=== PATIENT | female | born 1980 | race Caucasian/White ===

== ENCOUNTER → 2019-04-27 | Outpatient (CLI) | payer OTHER ==
[~2019-04-27] MED LIST: HYDACE5 PO
[2019-04-27 20:30] LABS: Protein, Urine Random 17.4 mg/dL (0.0-11.9); Protein/Creat Ratio, Ur Random 0.2
== END | disposition home or self-care (01) ==
LOC: LAB 19:12 → LAB SHORT 19:12
PROVIDERS: Obstetrics & Gynecology
DX: O09.523 Supervision of elderly multigravida, third trimester (principal); Z3A.31 31 weeks gestation of pregnancy
CPT/HCPCS: 82570; 84156

== ENCOUNTER → 2019-05-08 | Outpatient (CLI) | payer OTHER ==
[2019-05-08 18:05] LABS: Protein, Urine Quantitative 9.7 mg/dL (0.0-11.9)
== END | disposition home or self-care (01) ==
LOC: LAB 14:39 → LAB SHORT 14:39
PROVIDERS: Obstetrics & Gynecology
DX: Z34.83 Encounter for supervision of other normal pregnancy, third trimester (principal); Z3A.31 31 weeks gestation of pregnancy
CPT/HCPCS: 81050; 84156

== ENCOUNTER 2019-06-05 14:53 | Inpatient (IN) | payer OTHER ==
[~2019-06-05] VITALS: Ht 170.2 cm; Wt 94.5 kg
[~2019-06-05 14:53] MED LIST changes: +LABE200 PO; +NIFE60ER PO
[2019-06-05 15:33] LABS: BASOPHILS ABSOLUTE AUTO 0.01 K/mm3 (0.00-0.23); BASOPHILS PERCENT AUTO 0 % (0-2); EOSINOPHILS ABSOLUTE AUTO 0.09 K/mm3 (0.00-0.68); EOSINOPHILS PERCENT AUTO 1 % (0-6); Hematocrit 33.5 % (33.0-51.0); Hemoglobin 11.1 g/dL (11.5-16.0); IMMATURE GRAN ABSOLUTE AUTO 0.01 K/mm3 (0.00-0.10); IMMATURE GRAN PERCENT AUTO 0 % (0-1); LYMPHOCYTES ABSOLUTE AUTO 1.15 K/mm3 (0.84-5.20); LYMPHOCYTES PERCENT AUTO 18 % (21-46); MONOCYTES ABSOLUTE AUTO 0.37 K/mm3 (0.16-1.47); MONOCYTES PERCENT AUTO 6 % (4-13); Mean Corpuscular HGB 27.1 pg (26.0-34.0); Mean Corpuscular HGB Conc 33.1 g/dL (31.5-36.5); Mean Corpuscular Volume 82 fL (80-100); Mean Platelet Volume 10.2 fL (9.1-12.4); NEUTROPHILS ABSOLUTE AUTO 4.92 K/mm3 (1.96-9.15); NEUTROPHILS PERCENT AUTO 75 % (41-73); Platelet Count 202 K/mm3 (150-400); RDW Coefficient Variation 13.3 % (11.7-14.2); RDW Standard Deviation 39.2 fL (35.1-46.3); White Blood Cell Count 6.55 K/mm3 (4.00-11.30)
[2019-06-05] MEDS ORDERED: OMEP20ER PO (15:43)
[2019-06-05 15:51] LABS: Alanine Aminotransfer (ALT/SGP 23 U/L (12-78); Albumin, Blood 2.8 g/dL (3.4-5.0); Albumin/Globulin Ratio 0.6 (0.8-1.8); Alk Phos 121 U/L (50-136); Anion Gap 8 mmol/L (6-16); Aspartate Aminotrans (AST/SGOT 22 U/L (12-37); Bilirubin, Total 0.5 mg/dL (0.1-1.0); Blood Urea Nitrogen 8 mg/dL (8-24); Bun/Creatinine Ratio 15.9 (12.0-20.0); CO2, Blood 23 mmol/L (21-32); Calcium, Blood 8.7 mg/dL (8.5-10.1); Chloride, Blood 104 mmol/L (98-108); Globulin, Blood 4.4 g/dL (2.2-4.0); Glomerular Filtration Rate >60 (60-); Glucose, Blood 105 mg/dL (70-99); Potassium, Blood 3.7 mmol/L (3.5-5.5); Sodium, Blood 135 mmol/L (136-145); Total Protein, Blood 7.2 g/dL (6.4-8.2)
[2019-06-05 16:49] LABS: Protein, Urine Random 25.6 mg/dL (0.0-11.9); Protein/Creat Ratio, Ur Random 0.2
--- NOTE | 2019-06-05 20:15 | NUR ---
PT LAYING IN BED, ON CONT EFM PER MD THAT THERE WAS MODERATE VARIABLILITY AND VARIABLES IN OFFICE WITHOUT ACCELS. BP SOMETIMES ELEVATED WHEN PT SITTING UP TALKING TO FAMILY. PT REPORTS RIVAS, SAYS THAT DILAUDID HELPS, INSTRUCTED WE WOULD NOT BE GIVING THAT. LABS STABLE, PLANNING INDUCTION IN MORNING PER MD AT 36 5/7. DISCUSSED LUNG DEVELOPEMENT AND THAT THERE IS A RISK THIS MALE MIGHT HAVE SOME ISSUES BREATHING. PT AWARE, BUT THINKS IT WILL BE FINE. PLANNING TO REST OVERNIGHT THEN START INDUCTION IN AM.
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
--- NOTE | 2019-06-06 05:37 | NUR ---
PT OFF EFM TO TAKE A BATH AT PT REQUEST. LAB WAS JUST HERE DRAWING LABS. PLAN TO START PITOCIN AFTER SHOWER. GOWN CHANGED, MOORE CHANGED.
[2019-06-06 05:38] LABS: BASOPHILS ABSOLUTE AUTO 0.03 K/mm3 (0.00-0.23); BASOPHILS PERCENT AUTO 0 % (0-2); EOSINOPHILS ABSOLUTE AUTO 0.14 K/mm3 (0.00-0.68); EOSINOPHILS PERCENT AUTO 2 % (0-6); Hematocrit 31.9 % (33.0-51.0); Hemoglobin 10.3 g/dL (11.5-16.0); IMMATURE GRAN ABSOLUTE AUTO 0.03 K/mm3 (0.00-0.10); IMMATURE GRAN PERCENT AUTO 0 % (0-1); LYMPHOCYTES ABSOLUTE AUTO 1.66 K/mm3 (0.84-5.20); LYMPHOCYTES PERCENT AUTO 23 % (21-46); MONOCYTES ABSOLUTE AUTO 0.55 K/mm3 (0.16-1.47); MONOCYTES PERCENT AUTO 8 % (4-13); Mean Corpuscular HGB 26.8 pg (26.0-34.0); Mean Corpuscular HGB Conc 32.3 g/dL (31.5-36.5); Mean Corpuscular Volume 83 fL (80-100); NEUTROPHILS ABSOLUTE AUTO 4.91 K/mm3 (1.96-9.15); NEUTROPHILS PERCENT AUTO 67 % (41-73); Platelet Count 208 K/mm3 (150-400); RDW Coefficient Variation 13.5 % (11.7-14.2); RDW Standard Deviation 40.4 fL (35.1-46.3); Red Blood Cell Count 3.85 M/mm3 (3.80-5.20); White Blood Cell Count 7.32 K/mm3 (4.00-11.30)
[2019-06-06 06:02] LABS: Alanine Aminotransfer (ALT/SGP 24 U/L (12-78); Albumin, Blood 2.6 g/dL (3.4-5.0); Albumin/Globulin Ratio 0.6 (0.8-1.8); Alk Phos 91 U/L (50-136); Anion Gap 7 mmol/L (6-16); Aspartate Aminotrans (AST/SGOT 14 U/L (12-37); Bilirubin, Total 0.5 mg/dL (0.1-1.0); Blood Urea Nitrogen 8 mg/dL (8-24); Bun/Creatinine Ratio 14.1 (12.0-20.0); CO2, Blood 24 mmol/L (21-32); Calcium, Blood 8.6 mg/dL (8.5-10.1); Chloride, Blood 104 mmol/L (98-108); Creatinine, Blood 0.57 mg/dL (0.40-1.00); Globulin, Blood 4.2 g/dL (2.2-4.0); Glomerular Filtration Rate >60 (60-); Glucose, Blood 84 mg/dL (70-99); Potassium, Blood 3.5 mmol/L (3.5-5.5); Sodium, Blood 135 mmol/L (136-145); Total Protein, Blood 6.8 g/dL (6.4-8.2)
--- NOTE | 2019-06-06 06:58 | NUR ---
REPORT TO ONCOMING SHIFT, PT REPORTING A RIVAS, NORCO GIVEN. PITOCIN AT 4MU. OTHERWISE VSS, LABS STABLE. WAS CALLED AT 0615, UPDATED ABOUT VE FT/THICK/HOOP. LET PROVIDER KNOW THAT PT HAD DECELS IN THE NIGHT, PLAN TO GO AHEAD WITH PITOCIN. STARTED AT 0625.
[2019-06-08 07:05] LABS: BASOPHILS ABSOLUTE AUTO 0.02 K/mm3 (0.00-0.23); BASOPHILS PERCENT AUTO 0 % (0-2); EOSINOPHILS ABSOLUTE AUTO 0.13 K/mm3 (0.00-0.68); EOSINOPHILS PERCENT AUTO 1 % (0-6); Hematocrit 29.1 % (33.0-51.0); Hemoglobin 9.6 g/dL (11.5-16.0); IMMATURE GRAN ABSOLUTE AUTO 0.03 K/mm3 (0.00-0.10); IMMATURE GRAN PERCENT AUTO 0 % (0-1); LYMPHOCYTES ABSOLUTE AUTO 1.44 K/mm3 (0.84-5.20); LYMPHOCYTES PERCENT AUTO 16 % (21-46); MONOCYTES ABSOLUTE AUTO 0.47 K/mm3 (0.16-1.47); MONOCYTES PERCENT AUTO 5 % (4-13); Mean Corpuscular HGB 27.4 pg (26.0-34.0); Mean Corpuscular Volume 83 fL (80-100); Mean Platelet Volume 10.2 fL (9.1-12.4); NEUTROPHILS ABSOLUTE AUTO 7.03 K/mm3 (1.96-9.15); NEUTROPHILS PERCENT AUTO 77 % (41-73); Platelet Count 184 K/mm3 (150-400); RDW Coefficient Variation 13.7 % (11.7-14.2); RDW Standard Deviation 40.7 fL (35.1-46.3); Red Blood Cell Count 3.51 M/mm3 (3.80-5.20); White Blood Cell Count 9.12 K/mm3 (4.00-11.30)
[2019-06-08 09:51] LABS: PCO2 Cord - Arterial 66.6 mmHg (40-50); pH Cord - Arterial 7.24 (7.28-7.35)
[2019-06-08 09:55] LABS: PCO2 Cord - Venous 54.3 mmHg (40-50); pH Umbilical Cord - Venous 7.29 (7.26-7.35)
--- NOTE | 2019-06-08 11:37 | NUR ---
06/08/19 1137 Neli Goff 0901 PATIENT ARRIVE TO [facility] OR WITH FOLWY CATHETER AND EPIDURAL CATHETER INTACT. DR CHAVEZ PLANS TO DOSE UP EPIDURAL FOR C/SECTION
--- NOTE | 2019-06-08 12:45 | NUR ---
LATE NOTE ENTRY REGARDING EPIDURAL EPIDURAL STOPPED BEFORE WHEELING PT DOWN TO OPERATING ROOM, 54.3 INFUSED, 195 VTBI. ONCE IN OR, DR. CHAVEZ REQUESTED THAT EPIDURAL BAG/PUMP BE OBTAINED TO KEEP EPIDURAL RUNNING AFTER PROCEDURE. LABOR AND DELIVERY SUMMARY UPDATED WITH AMOUNT INFUSED AND STOP TIME. NURSE NOTE WILL NEED TO BE MADE WHEN EPIDURAL CATHETER REMOVED AND REMAINING INFUSED AMOUNT. THE REMAINING VTBI WILL ALSO NEED TO BE WASTED IN EMAR.
--- NOTE | 2019-06-08 14:12 | NUR ---
PT REQUESTED THAT BILATERAL LEG COMPERESSIONS BE REMOVED DUE TO BOTHERING PT'S LEGS. EXPLAINED THE PURPOSE OF THEM PREVENTING BLOOD CLOTS. PT VERBALLY STATED SHE UNDERSTOOD. PT REQUESTED THEY STAY OFF FOR NOW. RN REQUESTED SHE PLACE THEM BACK ON SOON POSSIBLE.
--- NOTE | 2019-06-09 02:24 | NUR ---
EPIDURAL TURNED OFF PER DR LEIJA AT 06/09/19 0215, 250ML INFUSED, EPIDURAL CATHETER REMOVED AT 0220, TIP INTACT.
[2019-06-09 06:39] LABS: BASOPHILS ABSOLUTE AUTO 0.03 K/mm3 (0.00-0.23); BASOPHILS PERCENT AUTO 0 % (0-2); EOSINOPHILS ABSOLUTE AUTO 0.11 K/mm3 (0.00-0.68); EOSINOPHILS PERCENT AUTO 1 % (0-6); Hematocrit 26.9 % (33.0-51.0); Hemoglobin 8.6 g/dL (11.5-16.0); IMMATURE GRAN ABSOLUTE AUTO 0.03 K/mm3 (0.00-0.10); IMMATURE GRAN PERCENT AUTO 0 % (0-1); LYMPHOCYTES PERCENT AUTO 18 % (21-46); MONOCYTES ABSOLUTE AUTO 0.54 K/mm3 (0.16-1.47); MONOCYTES PERCENT AUTO 7 % (4-13); Mean Corpuscular Volume 84 fL (80-100); Mean Platelet Volume 10.3 fL (9.1-12.4); NEUTROPHILS ABSOLUTE AUTO 5.58 K/mm3 (1.96-9.15); NEUTROPHILS PERCENT AUTO 73 % (41-73); Platelet Count 155 K/mm3 (150-400); RDW Coefficient Variation 13.7 % (11.7-14.2); Red Blood Cell Count 3.19 M/mm3 (3.80-5.20); White Blood Cell Count 7.69 K/mm3 (4.00-11.30)
[2019-06-10] MEDS ORDERED: HYDR1TAB94 PO (18:47)
[2019-06-10] MEDS ORDERED: ROXYBOND5 MG PO (18:47)
[2019-06-10] MEDS ORDERED: IBUP800 PO (18:47)
== END 2019-06-10 19:00 | disposition home or self-care (01) | DRG 784 ==
LOC: OBS 14:53 → BC 15:01
PROVIDERS: Nurse Practitioner Obstetrics & Gynecology; ADMIT Obstetrics & Gynecology
PROC: 10D00Z1 Extraction of Products of Conception, Low, Open Approach (ICD-10-PCS; principal; 2019-06-08 11:30)
PROC: 0UT70ZZ Resection of Bilateral Fallopian Tubes, Open Approach (ICD-10-PCS; 2019-06-08 11:30)
DX: O32.1XX0 Maternal care for breech presentation, not applicable or unspecified (principal); O10.92 Unspecified pre-existing hypertension complicating childbirth; O11.4 Pre-existing hypertension with pre-eclampsia, complicating childbirth; O77.9 Labor and delivery complicated by fetal stress, unspecified; Z37.0 Single live birth; Z30.2 Encounter for sterilization; Z87.891 Personal history of nicotine dependence
CPT/HCPCS: 36415; 59025; 80053; 81003; 82570; 82803; 84156; 85025; 86850; 86900; 86901; 86923; A9270; A9270-GY; J0290; J0690; J1885; J2001; J2405; J2590; J2704; J2765; J3010; J7120

== ENCOUNTER 2020-03-27 21:59 | Emergency (ER) | payer OTHER ==
[~2020-03-27] VITALS: Ht 170.2 cm; Wt 95.2 kg
[~2020-03-27 21:59] MED LIST changes: +HYDR1TAB94 PO; +IBUP800 PO; +OMEP20ER PO; +ROXYBOND5 MG PO
[2020-03-27] MEDS ORDERED: IBUP600 PO (23:12)
== END 2020-03-27 23:34 | disposition home or self-care (01) ==
LOC: ER 21:59
DX: S60.221A Contusion of right hand, initial encounter (principal); I10 Essential (primary) hypertension; Z88.1 Allergy status to other antibiotic agents; Z88.5 Allergy status to narcotic agent; Z79.899 Other long term (current) drug therapy; Z87.891 Personal history of nicotine dependence; W22.8XXA Striking against or struck by other objects, initial encounter
CPT/HCPCS: 29125; 73130; 99283-25; L3917

== ENCOUNTER 2020-10-12 01:00 | Emergency (ER) | payer OTHER ==
[~2020-10-12 01:00] MED LIST changes: +IBUP600 PO
== END 2020-10-12 03:05 | disposition left against medical advice (07) ==
LOC: ER 01:00
DX: Z53.21 Procedure and treatment not carried out due to patient leaving prior to being seen by health care provider (principal)

== ENCOUNTER → 2021-07-07 | Outpatient (CLI) | payer OTHER | END | disposition home or self-care (01) | LOC: PLD 15:08 → LAB SHORT 15:08 | DX: L91.0 Hypertrophic scar (principal) | CPT/HCPCS: 88305 ==

== ENCOUNTER 2022-04-05 15:17 | Observation (INO) | payer OTHER ==
[~2022-04-05] VITALS: Ht 170.2 cm; Wt 106.7 kg
[2022-04-05] MEDS ORDERED: LOSARTAN POTASSIUM (16:08)
[2022-04-05] MEDS ORDERED: OMEPRAZOLE DR 40 MG (16:08)
[2022-04-05] MEDS ORDERED: HYDROCHLOROTHIAZIDE (16:08)
[2022-04-05 16:13] LABS: BASOPHILS ABSOLUTE AUTO 0.05 K/mm3 (0.00-0.23); BASOPHILS PERCENT AUTO 1 % (0-2); EOSINOPHILS ABSOLUTE AUTO 0.25 K/mm3 (0.00-0.68); EOSINOPHILS PERCENT AUTO 2 % (0-6); Hematocrit 36.7 % (33.0-51.0); Hemoglobin 11.3 g/dL (11.5-16.0); IMMATURE GRAN ABSOLUTE AUTO 0.03 K/mm3 (0.00-0.10); IMMATURE GRAN PERCENT AUTO 0 % (0-1); LYMPHOCYTES ABSOLUTE AUTO 1.31 K/mm3 (0.84-5.20); LYMPHOCYTES PERCENT AUTO 13 % (21-46); MONOCYTES ABSOLUTE AUTO 0.66 K/mm3 (0.16-1.47); MONOCYTES PERCENT AUTO 6 % (4-13); Mean Corpuscular HGB 22.9 pg (26.0-34.0); Mean Corpuscular HGB Conc 30.8 g/dL (31.5-36.5); Mean Corpuscular Volume 74 fL (80-100); Mean Platelet Volume 9.7 fL (9.1-12.4); NEUTROPHILS ABSOLUTE AUTO 8.01 K/mm3 (1.96-9.15); NEUTROPHILS PERCENT AUTO 78 % (41-73); Platelet Count 267 K/mm3 (150-400); RDW Coefficient Variation 15.5 % (11.7-14.2); RDW Standard Deviation 41.4 fL (35.1-46.3); Red Blood Cell Count 4.93 M/mm3 (3.80-5.20); White Blood Cell Count 10.31 K/mm3 (4.00-11.30)
[2022-04-05 16:19] LABS: Source, Urine Clean Catch
[2022-04-05 16:25] LABS: Albumin, Blood 3.9 g/dL (3.4-5.0); Albumin/Globulin Ratio 1.1 (0.8-1.8); Bilirubin, Total 1.1 mg/dL (0.1-1.0); Bun/Creatinine Ratio 18.5 (12.0-20.0); Calcium, Blood 8.7 mg/dL (8.5-10.1); Creatinine, Blood 0.7 mg/dL (0.40-1.00); Globulin, Blood 3.7 g/dL (2.2-4.0); Potassium, Blood 3.3 mmol/L (3.5-5.5); Total Protein, Blood 7.6 g/dL (6.4-8.2)
[2022-04-05 16:39] LABS: Appearance, Urine Clear (Clear); Blood, Urine 1+ (Neg); Color, Urine Yellow (P-Yellow); Glucose Qualitative, Urine Neg (Neg); Ketones, Urine 1+ (Neg); Leukocyte Esterase, Urine 1+ (Neg); Nitrite, Urine Neg (Neg); Protein, Urine 3+ (Neg); Specific Gravity, Urine 1.025 (1.003-1.022); Urobilinogen, Urine 1+ (Normal)
[2022-04-05 16:47] LABS: Bilirubin, Urine 1+ (Neg)
[2022-04-05 16:48] LABS: Bacteria Many /hpf; Hyaline Casts 0-2 /lpf (0-2); Mucus Light (0-Heavy); Squamous Epithelial Cells Mod /hpf (Few)
[2022-04-05] MEDS ORDERED: CIPR500 PO (17:05)
[2022-04-05] MEDS ORDERED: METR500 PO (17:05)
[2022-04-05 18:13] LABS: Anti-Xa UFH, PHA Monitoring <0.10 IU/mL; International Normalized Ratio 1.02; Prothrombin Time Results 10.7 Sec (9.7-11.5)
[2022-04-06 04:41] LABS: BASOPHILS ABSOLUTE AUTO 0.04 K/mm3 (0.00-0.23); BASOPHILS PERCENT AUTO 1 % (0-2); EOSINOPHILS ABSOLUTE AUTO 0.29 K/mm3 (0.00-0.68); EOSINOPHILS PERCENT AUTO 4 % (0-6); Hematocrit 31.4 % (33.0-51.0); Hemoglobin 9.4 g/dL (11.5-16.0); IMMATURE GRAN ABSOLUTE AUTO 0.03 K/mm3 (0.00-0.10); IMMATURE GRAN PERCENT AUTO 0 % (0-1); LYMPHOCYTES ABSOLUTE AUTO 1.42 K/mm3 (0.84-5.20); LYMPHOCYTES PERCENT AUTO 19 % (21-46); MONOCYTES ABSOLUTE AUTO 0.58 K/mm3 (0.16-1.47); MONOCYTES PERCENT AUTO 8 % (4-13); Mean Corpuscular HGB 22.7 pg (26.0-34.0); Mean Corpuscular HGB Conc 29.9 g/dL (31.5-36.5); Mean Corpuscular Volume 76 fL (80-100); Mean Platelet Volume 9.9 fL (9.1-12.4); NEUTROPHILS ABSOLUTE AUTO 5.15 K/mm3 (1.96-9.15); NEUTROPHILS PERCENT AUTO 69 % (41-73); Platelet Count 253 K/mm3 (150-400); RDW Coefficient Variation 15.5 % (11.7-14.2); RDW Standard Deviation 42.9 fL (35.1-46.3); Red Blood Cell Count 4.14 M/mm3 (3.80-5.20); White Blood Cell Count 7.51 K/mm3 (4.00-11.30)
--- NOTE | 2022-04-06 05:02 | NUR ---
PT ARRIVES TO PCU 16 VIA GURNEY FROM ER AT 2044 THIS SHIFT FOR DX HYPERTENSIVE URGENCY. SHE IS ALERT AND ORIENTED, PLEASANT AND COOPERATIVE WITH CARE, AMBULATES IN ROOM IND WITH STEADY GAIT, DENIES CP/PRESSURE, DENIES SOB/DYSPNEA, ADMITS TO INTERMITTENT NAUSEA, C/O PAIN 5-7/10 TO RUQ, SHE REPORTS MINIMAL RELIEF WITH FENTANYL ADMINISTRATION. SHE REPORTS THAT SHE HAS ONLY SLEPT A COUPLE OF HOURS THIS SHIFT. PRESSURES HAVE IMPROVED THROUGHOUT NOC WITHOUT NEED FOR PRN HYDRALAZINE, SHE CONTINUES IN SINUS RHYTHM, RATE 60S, PULSES REMAIN FULL X ALL EXTREMITIES, SKIN PWD. SATS MAINTAIN ON ROOM AIR, NO VISIBLE INCREASED WORK OF BREATHING IS NOTED. ABD REMAINS TENDER TO RUQ, ACTIVE BOWEL TONES X 4. GOOD URINE OUTPUT THIS SHIFT, SEE I & O FOR SHIFT. WILL CONT TO MONITOR AND REPORT OFF TO NEXT SHIFT.
[2022-04-06 05:06] LABS: Albumin, Blood 3.1 g/dL (3.4-5.0); Albumin/Globulin Ratio 0.9 (0.8-1.8); Bilirubin, Total 0.6 mg/dL (0.1-1.0); Bun/Creatinine Ratio 15.8 (12.0-20.0); Calcium, Blood 7.8 mg/dL (8.5-10.1); Creatinine, Blood 0.76 mg/dL (0.40-1.00); Globulin, Blood 3.6 g/dL (2.2-4.0); Magnesium, Blood 2.3 mg/dL (1.6-2.4); Potassium, Blood 3.5 mmol/L (3.5-5.5); Total Protein, Blood 6.7 g/dL (6.4-8.2)
--- NOTE | 2022-04-06 11:39 | NUR ---
[place] of Care: Care assumed at 0700hr. Patient sleeping, easily roused to verbal stimuli, alert and oriented x4. VSS, spO2-95-98% on RA, systolic PB in the 130's, denies dyspnea/SOB. C/o pain to ABD (upper). GI cocktail offered but patient refused, stating it was non-effective. Spoke with Dr. Wisdom, frequency of prn fentanyl increased and new order for PO oxycodone received. X1 prn fentanyl and oxycodone effective, patient now sleeping and states pain is improved when awake. Peripheral IV's patent and intact. Call light in reach, makes needs known. Will continue to monitor.
[2022-04-06 14:35] LABS: Albumin, Blood 3.2 g/dL (3.4-5.0); Anion Gap 6 mmol/L (6-16); Blood Urea Nitrogen 13 mg/dL (8-24); Bun/Creatinine Ratio 17.2 (12.0-20.0); CO2, Blood 28 mmol/L (21-32); Chloride, Blood 106 mmol/L (98-108); Creatinine, Blood 0.76 mg/dL (0.40-1.00); Glomerular Filtration Rate 102 (60-); Glucose, Blood 122 mg/dL (70-99); Phosphorus, Blood 2.2 mg/dL (2.5-4.9); Potassium, Blood 3.5 mmol/L (3.5-5.5); Sodium, Blood 140 mmol/L (136-145)
--- NOTE | 2022-04-06 18:53 | NUR ---
Shift Summary: No significant changes throughout remainder of shift. X1 additional prn oxycodone and fentanyl given per ABD pain, good effect noted. VSS, systolic BP decreased to low 100's mid morning then trended back up to 140's by end of shift. Dr. Wisdom D/C'd labatolol and increased the BID dose of losartan. Next scheduled dose of losartan is for HS tonight. Transferring in room and repositioning self in bed without difficulty. Tolerating PO food and fluids without difficulty. Calm and cooperative with staff. Call light in reach, makes needs known. Will continue to monitor until report to NOC shift RN.
[2022-04-07 05:44] LABS: BASOPHILS ABSOLUTE AUTO 0.04 K/mm3 (0.00-0.23); BASOPHILS PERCENT AUTO 1 % (0-2); EOSINOPHILS ABSOLUTE AUTO 0.39 K/mm3 (0.00-0.68); EOSINOPHILS PERCENT AUTO 5 % (0-6); Hemoglobin 9.4 g/dL (11.5-16.0); IMMATURE GRAN ABSOLUTE AUTO 0.03 K/mm3 (0.00-0.10); IMMATURE GRAN PERCENT AUTO 0 % (0-1); LYMPHOCYTES ABSOLUTE AUTO 2.07 K/mm3 (0.84-5.20); LYMPHOCYTES PERCENT AUTO 27 % (21-46); MONOCYTES ABSOLUTE AUTO 0.62 K/mm3 (0.16-1.47); MONOCYTES PERCENT AUTO 8 % (4-13); Mean Corpuscular HGB 22.8 pg (26.0-34.0); Mean Corpuscular HGB Conc 29.4 g/dL (31.5-36.5); Mean Corpuscular Volume 78 fL (80-100); Mean Platelet Volume 9.6 fL (9.1-12.4); NEUTROPHILS ABSOLUTE AUTO 4.57 K/mm3 (1.96-9.15); NEUTROPHILS PERCENT AUTO 59 % (41-73); Platelet Count 252 K/mm3 (150-400); RDW Coefficient Variation 15.9 % (11.7-14.2); RDW Standard Deviation 44.7 fL (35.1-46.3); Red Blood Cell Count 4.13 M/mm3 (3.80-5.20); White Blood Cell Count 7.72 K/mm3 (4.00-11.30)
--- NOTE | 2022-04-07 06:27 | NUR ---
SHIFT SUMMARY A/OX4, IND IN ROOM. C/O ABD PAIN, MEDICATED PER EMAR. TELE SR IN THE 60S. BP REMAINS STABLE. SLEPT T/O THE NIGHT. VSS, NO ACUTE CHANGES AT THIS TIME. BED IN LOWEST POSITION WITH CALL LIGHT IN REACH. WILL CONTINUE TO MONITOR AND REPORT TO ONCOMING RN.
[2022-04-07 06:44] LABS: Albumin, Blood 3.1 g/dL (3.4-5.0); Anion Gap 4 mmol/L (6-16); Blood Urea Nitrogen 12 mg/dL (8-24); CO2, Blood 28 mmol/L (21-32); Calcium, Blood 8.1 mg/dL (8.5-10.1); Chloride, Blood 105 mmol/L (98-108); Glomerular Filtration Rate 112 (60-); Glucose, Blood 109 mg/dL (70-99); Magnesium, Blood 2.1 mg/dL (1.6-2.4); Potassium, Blood 4.2 mmol/L (3.5-5.5); Sodium, Blood 137 mmol/L (136-145)
[2022-04-07] MEDS ORDERED: LOSA50 PO (12:50)
== END 2022-04-07 13:21 | disposition home or self-care (01) ==
LOC: ER 15:17 → PCU 15:18
PROVIDERS: Emergency Medicine; Family Medicine; Nurse Practitioner Acute Care; Student in an Organized Health Care Education/Training Program; ADMIT Internal Medicine
DX: I16.0 Hypertensive urgency (principal); R77.8 Other specified abnormalities of plasma proteins; R07.9 Chest pain, unspecified; R10.9 Unspecified abdominal pain; I16.1 Hypertensive emergency; K21.9 Gastro-esophageal reflux disease without esophagitis; Z88.5 Allergy status to narcotic agent; Z88.0 Allergy status to penicillin; A08.4 Viral intestinal infection, unspecified; E87.6 Hypokalemia; E87.1 Hypo-osmolality and hyponatremia
CPT/HCPCS: 36415; 71045; 74177; 80053; 80069; 81001; 83690; 83735; 83880; 84484; 85025; 85520; 85610; 87086; 93005; 93010; 93306; 96361; 96365-59; 96366; 96372; 96375; 96376; 99285-25; A9270; C9113; G0378; J0360; J1644; J1650; J2405; J3010; J3480; J7030; Q9967

== ENCOUNTER 2022-09-24 16:03 | Emergency (ER) | payer OTHER ==
[~2022-09-24] VITALS: Ht 170.2 cm; Wt 99.8 kg
[~2022-09-24 16:03] MED LIST changes: +CIPR500 PO; +HYDROCHLOROTHIAZIDE; +LOSA50 PO; +LOSARTAN POTASSIUM; +METR500 PO; +OMEPRAZOLE DR 40 MG
[2022-09-24 16:43] LABS: BASOPHILS ABSOLUTE AUTO 0.06 K/mm3 (0.00-0.23); BASOPHILS PERCENT AUTO 1 % (0-2); EOSINOPHILS PERCENT AUTO 3 % (0-6); Hematocrit 36.8 % (33.0-51.0); IMMATURE GRAN ABSOLUTE AUTO 0.02 K/mm3 (0.00-0.10); IMMATURE GRAN PERCENT AUTO 0 % (0-1); LYMPHOCYTES ABSOLUTE AUTO 1.73 K/mm3 (0.84-5.20); LYMPHOCYTES PERCENT AUTO 22 % (21-46); MONOCYTES ABSOLUTE AUTO 0.44 K/mm3 (0.16-1.47); MONOCYTES PERCENT AUTO 6 % (4-13); Mean Corpuscular HGB 21.7 pg (26.0-34.0); Mean Corpuscular HGB Conc 29.9 g/dL (31.5-36.5); Mean Corpuscular Volume 73 fL (80-100); Mean Platelet Volume 10.1 fL (9.1-12.4); NEUTROPHILS ABSOLUTE AUTO 5.38 K/mm3 (1.96-9.15); NEUTROPHILS PERCENT AUTO 69 % (41-73); Platelet Count 299 K/mm3 (150-400); RDW Standard Deviation 43.8 fL (35.1-46.3); Red Blood Cell Count 5.07 M/mm3 (3.80-5.20); White Blood Cell Count 7.83 K/mm3 (4.00-11.30)
[2022-09-24 17:09] LABS: Albumin, Blood 3.7 g/dL (3.4-5.0); Albumin/Globulin Ratio 0.9 (0.8-1.8); Bilirubin, Total 0.7 mg/dL (0.1-1.0); Bun/Creatinine Ratio 19.2 (12.0-20.0); Calcium, Blood 8.6 mg/dL (8.5-10.1); Creatinine, Blood 0.73 mg/dL (0.40-1.00); Globulin, Blood 3.9 g/dL (2.2-4.0); Potassium, Blood 3.4 mmol/L (3.5-5.5); Total Protein, Blood 7.6 g/dL (6.4-8.2)
[2022-09-24] MEDS ORDERED: ASPI81CH PO (20:07)
[2022-09-24] MEDS ORDERED: Toprol Xl25 MG PO (20:07)
[2022-09-24 20:19] VITALS: BP 206/110
== END 2022-09-24 20:18 | disposition home or self-care (01) ==
LOC: ER 16:03
PROVIDERS: Emergency Medicine
DX: R20.2 Paresthesia of skin (principal); I10 Essential (primary) hypertension; Z88.5 Allergy status to narcotic agent; Z88.1 Allergy status to other antibiotic agents; Z87.891 Personal history of nicotine dependence
CPT/HCPCS: 70450; 80053; 85025; 93005; 93010; 99285-25; A9270

== ENCOUNTER 2024-06-29 15:51 | Emergency (ER) | payer OTHER ==
[~2024-06-29] VITALS: Ht 170.2 cm; Wt 98.4 kg
[~2024-06-29 15:51] MED LIST changes: +ASPI81CH PO; +Toprol Xl25 MG PO
[2024-06-29 17:20] LABS: BASOPHILS ABSOLUTE AUTO 0.06 K/mm3 (0.00-0.23); BASOPHILS PERCENT AUTO 1 % (0-2); EOSINOPHILS PERCENT AUTO 4 % (0-6); Hematocrit 37.2 % (33.0-51.0); Hemoglobin 10.9 g/dL (11.5-16.0); IMMATURE GRAN ABSOLUTE AUTO 0.02 K/mm3 (0.00-0.10); IMMATURE GRAN PERCENT AUTO 0 % (0-1); LYMPHOCYTES ABSOLUTE AUTO 1.84 K/mm3 (0.84-5.20); LYMPHOCYTES PERCENT AUTO 24 % (21-46); MONOCYTES ABSOLUTE AUTO 0.55 K/mm3 (0.16-1.47); MONOCYTES PERCENT AUTO 7 % (4-13); Mean Corpuscular HGB 21.2 pg (26.0-34.0); Mean Corpuscular HGB Conc 29.3 g/dL (31.5-36.5); Mean Corpuscular Volume 73 fL (80-100); Mean Platelet Volume 10.1 fL (9.1-12.4); NEUTROPHILS ABSOLUTE AUTO 4.76 K/mm3 (1.96-9.15); NEUTROPHILS PERCENT AUTO 63 % (41-73); Platelet Count 332 K/mm3 (150-400); RDW Standard Deviation 41.3 fL (35.1-46.3); Red Blood Cell Count 5.13 M/mm3 (3.80-5.20); White Blood Cell Count 7.53 K/mm3 (4.00-11.30)
[2024-06-29 18:03] LABS: Albumin, Blood 3.9 g/dL (3.4-5.0); Albumin/Globulin Ratio 0.9 (0.8-1.8); Bilirubin, Total 0.8 mg/dL (0.1-1.0); Bun/Creatinine Ratio 22.8 (12.0-20.0); Calcium, Blood 9.1 mg/dL (8.5-10.1); Creatinine, Blood 0.74 mg/dL (0.40-1.00); Globulin, Blood 4.2 g/dL (2.2-4.0); Total Protein, Blood 8.1 g/dL (6.4-8.2)
[2024-06-29] MEDS ORDERED: Labetalol HCL 100 MG TAB PO ONE (20:00)
[2024-06-29] MEDS ORDERED: LABE200 PO (20:00)
[2024-06-29 20:22] VITALS: BP 211/101
== END 2024-06-29 20:33 | disposition home or self-care (01) ==
LOC: ER 15:51
PROVIDERS: Student in an Organized Health Care Education/Training Program
DX: I10 Essential (primary) hypertension (principal); Z88.1 Allergy status to other antibiotic agents; Z88.5 Allergy status to narcotic agent; Z79.899 Other long term (current) drug therapy; Z87.891 Personal history of nicotine dependence
CPT/HCPCS: 80053; 85025; 99283; A9270

== ENCOUNTER 2024-10-15 03:18 | Inpatient (IN) | payer OTHER ==
[~2024-10-15] VITALS: Ht 170.2 cm; Wt 96.6 kg
[2024-10-15] VITALS (40 sets, daily range): BP systolic 135–205; BP diastolic 61–109
[2024-10-15 03:44] LABS: BASOPHILS ABSOLUTE AUTO 0.06 K/mm3 (0.00-0.23); BASOPHILS PERCENT AUTO 1 % (0-2); EOSINOPHILS ABSOLUTE AUTO 0.43 K/mm3 (0.00-0.68); EOSINOPHILS PERCENT AUTO 4 % (0-6); Hematocrit 35.8 % (33.0-51.0); Hemoglobin 10.4 g/dL (11.5-16.0); IMMATURE GRAN ABSOLUTE AUTO 0.05 K/mm3 (0.00-0.10); IMMATURE GRAN PERCENT AUTO 1 % (0-1); LYMPHOCYTES ABSOLUTE AUTO 2.56 K/mm3 (0.84-5.20); LYMPHOCYTES PERCENT AUTO 24 % (21-46); MONOCYTES ABSOLUTE AUTO 0.56 K/mm3 (0.16-1.47); MONOCYTES PERCENT AUTO 5 % (4-13); Mean Corpuscular HGB Conc 29.1 g/dL (31.5-36.5); Mean Corpuscular Volume 70 fL (80-100); NEUTROPHILS ABSOLUTE AUTO 7.16 K/mm3 (1.96-9.15); NEUTROPHILS PERCENT AUTO 66 % (41-73); NRBC ABSOLUTE 0.00 K/mm3 (0.00-0.02); NRBC Auto 0.0 /100 WBC (0.0-0.2); Platelet Count 323 K/mm3 (150-400); RDW Coefficient Variation 17.3 % (11.7-14.2); RDW Standard Deviation 43.4 fL (35.1-46.3)
[2024-10-15 04:06] LABS: Alanine Aminotransfer (ALT/SGP 25.0 U/L (12-78); Albumin, Blood 3.7 g/dL (3.4-5.0); Albumin/Globulin Ratio 0.9 (0.8-1.8); Anion Gap 8.0 mmol/L (3-11); Aspartate Aminotrans (AST/SGOT 19.0 U/L (12-37); Bilirubin, Total 0.6 mg/dL (0.1-1.0); Blood Urea Nitrogen 11.0 mg/dL (8-24); CO2, Blood 27.0 mmol/L (21-32); Calcium, Blood 8.8 mg/dL (8.5-10.1); Chloride, Blood 104.0 mmol/L (98-108); Creatinine, Blood 0.8 mg/dL (0.40-1.00); Globulin, Blood 4.2 g/dL (2.2-4.0); Glucose, Blood 107.0 mg/dL (70-99); Magnesium, Blood 2.0 mg/dL (1.6-2.4); Potassium, Blood 3.5 mmol/L (3.5-5.5); Sodium, Blood 135.0 mmol/L (136-145); Total Protein, Blood 7.9 g/dL (6.4-8.2)
[2024-10-15 04:19] LABS: Prothrombin Time Results 10.3 Sec (9.7-11.5)
[2024-10-15] MEDS ORDERED: NiCARdipine HCL 50 MG in NS 250 ML IV SCH ×2 (04:55→06:30)
[2024-10-15] MEDS ORDERED: Heparin Sodium,Porcine/0.5 NS 500 ML IV SCH (05:55)
[2024-10-15] MEDS ORDERED: Ondansetron HCl 2 MG / ML 2ML Vial IV PRN (06:15)
[2024-10-15] MEDS ORDERED: NiCARdipine HCL 25 MG/10 ML (2.5MG/ML) IV SCH (06:15)
[2024-10-15] MEDS ORDERED: Heparin Sodium 5000 Units/ML 1ML MDV IV ONE ×3 (06:35→21:35)
[2024-10-15 06:59] LABS: Thyroid Stimulating Hormone 3.51 uIU/mL (0.360-4.800)
[2024-10-15 07:55] LABS: Source, Urine Clean Catch
[2024-10-15 08:10] LABS: pH Blood Venous 7.44 (7.34-7.37)
[2024-10-15 08:27] LABS: Bilirubin, Urine Neg (Neg); Glucose Qualitative, Urine Neg (Neg); Ketones, Urine Neg (Neg); Leukocyte Esterase, Urine Neg (Neg); Protein, Urine 1+ (Neg); Specific Gravity, Urine 1.015 (1.003-1.022); Urobilinogen, Urine NORM (Normal)
[2024-10-15 08:33] LABS: Color, Urine Pale Yellow (P-Yellow)
[2024-10-15 08:39] LABS: U Amphetamine Screen Not Detected; U Barbituate Screen Not Detected; U Benzodiazapine Screen Not Detected; U Buprenorphine Screen Not Detected; U Cannabinoids Screen Not Detected; U Cocaine Screen Not Detected; U Methadone Screen Not Detected; U Methamphetamine Screen Not Detected; U Opiates Screen Not Detected; U Oxycodone Screen Not Detected; U Phencyclidine Screen Not Detected
[2024-10-15] MEDS ORDERED: OMEP20ER PO (11:22)
[2024-10-15] MEDS ORDERED: HYDROCODONE-AC1 EA19 PO (13:58)
[2024-10-15] MEDS ORDERED: Dose Adjust by Pharmacy XX STA ×2 (14:54→21:33)
[2024-10-15 15:09] LABS: Ferritin, Serum 8.0 ng/mL (8-252); Total Iron Binding Capacity 434.0 ug/dL (250-450)
[2024-10-15] MEDS ORDERED: Midazolam HCL 1 MG/ML 5MLVIAL ONE (15:43)
--- NOTE | 2024-10-15 18:24 | NUR ---
PATIENT ADMITTED TODAY FOR HYPERTENSIVE EMERGENCY, ON ARRIVAL TO ICU PT WAS ON NITROGLYCERIN INFUSION @ 20MCG/MIN AND NICARDIPINE INFUSION @ 10MG/HR. SPOKE WITH DR BEAL VIA PHONE CONCERNING BP GOALS, DR BEAL WOULD LIKE SBP BETWEEN 180 AND 190, SUBSEQUENTLY NITROGLYCERIN SUCCESSFULLY WEANED OFF AND NICARDIPINE INFUSION AT 2.5MG/HR AT END OF SHIFT. PATIENT IS PLEASANT TO INTERACT WITH, DENIES HEADACHE OR VISION CHANGES, IS ORIENTED AND ABLE TO HOLD CONVERSATION.
[2024-10-15] MEDS ORDERED: HYDROcodone 5-APAP 325 TAB PO PRN (20:35)
[2024-10-16] VITALS (92 sets, daily range): BP systolic 129–218; BP diastolic 51–107
--- NOTE | 2024-10-16 00:20 | NUR ---
UPDATE PT RESTING IN BED WITH EYES CLOSED RESP EVEN AND UNLABORED ON RA WITH NOTED DESAT 78-89%, PT AWAKENS EASILY TO VERBAL STIMULI AND SPO2 >95%, PLACED ON 2 LPM NC TO KEEP SPO2 >90% WHILE SLEEPING
[2024-10-16 04:19] LABS: BASOPHILS ABSOLUTE AUTO 0.07 K/mm3 (0.00-0.23); BASOPHILS PERCENT AUTO 1 % (0-2); EOSINOPHILS ABSOLUTE AUTO 0.41 K/mm3 (0.00-0.68); EOSINOPHILS PERCENT AUTO 5 % (0-6); Hematocrit 36.0 % (33.0-51.0); Hemoglobin 10.4 g/dL (11.5-16.0); IMMATURE GRAN ABSOLUTE AUTO 0.02 K/mm3 (0.00-0.10); IMMATURE GRAN PERCENT AUTO 0 % (0-1); LYMPHOCYTES ABSOLUTE AUTO 2.32 K/mm3 (0.84-5.20); LYMPHOCYTES PERCENT AUTO 27 % (21-46); MONOCYTES ABSOLUTE AUTO 0.58 K/mm3 (0.16-1.47); MONOCYTES PERCENT AUTO 7 % (4-13); Mean Corpuscular HGB Conc 28.9 g/dL (31.5-36.5); Mean Corpuscular Volume 72 fL (80-100); NEUTROPHILS ABSOLUTE AUTO 5.21 K/mm3 (1.96-9.15); NEUTROPHILS PERCENT AUTO 61 % (41-73); NRBC ABSOLUTE 0.00 K/mm3 (0.00-0.02); NRBC Auto 0.0 /100 WBC (0.0-0.2); Platelet Count 313 K/mm3 (150-400); RDW Coefficient Variation 17.3 % (11.7-14.2); RDW Standard Deviation 43.9 fL (35.1-46.3)
[2024-10-16 05:03] LABS: Alanine Aminotransfer (ALT/SGP 26 U/L (12-78); Albumin, Blood 3.7 g/dL (3.4-5.0); Albumin/Globulin Ratio 0.9 (0.8-1.8); Anion Gap 10 mmol/L (3-11); Aspartate Aminotrans (AST/SGOT 17 U/L (12-37); Bilirubin, Total 0.9 mg/dL (0.1-1.0); Blood Urea Nitrogen 8 mg/dL (8-24); CHOL/HDL RATIO 11.4; CO2, Blood 24 mmol/L (21-32); Calcium, Blood 8.4 mg/dL (8.5-10.1); Chloride, Blood 103 mmol/L (98-108); Cholesterol 205 mg/dL (50-200); Creatinine, Blood 0.60 mg/dL (0.40-1.00); Globulin, Blood 4.1 g/dL (2.2-4.0); Glucose, Blood 126 mg/dL (70-99); HDL Cholesterol 18 mg/dL (>39); LDL/HDL RATIO Unable to Calculate; Low Density Lipoprotein Chol Unable to Calculate mg/dL (0-110); Potassium, Blood 3.2 mmol/L (3.5-5.5); Sodium, Blood 134 mmol/L (136-145); Total Protein, Blood 7.8 g/dL (6.4-8.2); Triglycerides 1110 mg/dL (30-160); Very Low Density Lipoprot Chol 222 mg/dL (6-32)
--- NOTE | 2024-10-16 06:21 | NUR ---
SHIFT SUMMARY PT ALERT AND ORIENTED X4, FOLLOWS COMMANDS, ABLE TO MAKE NEEDS KNOWN, SR 60-70s, AFEBRILE, SBP GOAL <180 MAINTAINED ON NICARDAPINE GTT AND TITRATED PER EMAR, O2 SAT >90% ON RA WHILE AWAKE, PT ASLEEP WITH NOTED APNEA AND DESAT TO 50% ON RA, PLACED ON NC UP TO 10 LPM WITH SPO2 CONTINUING TO DESAT, CHANGED PT TO OXYMASK AT 10 LPM WITH SPO2 >90% WHILE ASLEEP. PT STATES SHE HAS AN APPT FOR A SLEEP STUDY SCHEDULED October, PT VOIDS WITHOUT DIFFICULTY, AMBULATES TO TOILET WITHOUT ASSIST, GAIT STEADY, HEPARIN GTT INFUSING AND TITRATED PER PHARMACY MANANGEMENT, POTASSIUM REPLACEMENT ORDERS RECEIVED AND KCL INFUSING AT THIS TIME, NPO SINCE MIDNIGHT PER ORDERS, SIDE RAILS UP X3, BED IN LOW POSITION, CALL LIGHT IN REACH
[2024-10-16] MEDS ORDERED: Verapamil HCL 2.5 MG/ML 2ML Injection ONE (09:08)
[2024-10-16] MEDS ORDERED: Heparin Sodium 1000 Units/ML 10ML MDV ONE (09:09)
[2024-10-16] MEDS ORDERED: NS 250 ML IV ONE (09:09)
[2024-10-16] MEDS ORDERED: Nitroglycerin 2 MG/20 ML BTL ONE (09:09)
[2024-10-16] MEDS ORDERED: NS 1,000 ML IV ONE ×2 (09:09→10:06)
[2024-10-16] MEDS ORDERED: FentaNYL Citrate 50 MCG/ML 2 ML Injection ONE (10:05)
[2024-10-16] MEDS ORDERED: Midazolam HCl 1MG / ML 2ML Vial ONE (10:05)
--- NOTE | 2024-10-16 18:47 | NUR ---
Spoke with Dr Tamez this morning for gools of Nicardipine tiration goals, MD stated to titrate infusion to SBP goals of 140-160 and to give PO anti hypertensive medidicines. At one point during the shift, nicardine was successfully weaned off, however, SBP janet in the afternoon and IV infusion resumed. Patient off the ICU in the [facility] from 10:26 to 11:45. The patient returned with a TR band in place (see Heart center Flowsheet) which was removed by protocol without incident. Dr Carter contacted shortly after arrival to unit via phone, MD confirmed patient no longer requires hepiran infusion. see Critical Care Flowsheet for titration, end and start times of High Risk infusions given during shift. Patient remains pleasant to interact with, able to to move under her own power and interact appropiately
[2024-10-17] VITALS (40 sets, daily range): BP systolic 89–176; BP diastolic 54–121
[2024-10-17 03:46] LABS: BASOPHILS ABSOLUTE AUTO 0.06 K/mm3 (0.00-0.23); BASOPHILS PERCENT AUTO 1 % (0-2); EOSINOPHILS ABSOLUTE AUTO 0.48 K/mm3 (0.00-0.68); EOSINOPHILS PERCENT AUTO 5 % (0-6); Hematocrit 33.3 % (33.0-51.0); Hemoglobin 9.7 g/dL (11.5-16.0); IMMATURE GRAN ABSOLUTE AUTO 0.03 K/mm3 (0.00-0.10); IMMATURE GRAN PERCENT AUTO 0 % (0-1); LYMPHOCYTES ABSOLUTE AUTO 1.64 K/mm3 (0.84-5.20); LYMPHOCYTES PERCENT AUTO 19 % (21-46); MONOCYTES ABSOLUTE AUTO 0.68 K/mm3 (0.16-1.47); MONOCYTES PERCENT AUTO 8 % (4-13); Mean Corpuscular HGB Conc 29.1 g/dL (31.5-36.5); Mean Corpuscular Volume 72 fL (80-100); NEUTROPHILS ABSOLUTE AUTO 5.97 K/mm3 (1.96-9.15); NEUTROPHILS PERCENT AUTO 67 % (41-73); NRBC ABSOLUTE 0.00 K/mm3 (0.00-0.02); NRBC Auto 0.0 /100 WBC (0.0-0.2); Platelet Count 289 K/mm3 (150-400); RDW Coefficient Variation 17.3 % (11.7-14.2); RDW Standard Deviation 44.3 fL (35.1-46.3)
[2024-10-17 04:09] LABS: Anion Gap 7.0 mmol/L (3-11); Blood Urea Nitrogen 12.0 mg/dL (8-24); CO2, Blood 27.0 mmol/L (21-32); Calcium, Blood 8.2 mg/dL (8.5-10.1); Chloride, Blood 106.0 mmol/L (98-108); Creatinine, Blood 0.69 mg/dL (0.40-1.00); Glucose, Blood 128.0 mg/dL (70-99); Potassium, Blood 3.7 mmol/L (3.5-5.5); Sodium, Blood 136.0 mmol/L (136-145)
--- NOTE | 2024-10-17 06:26 | NUR ---
SHIFT SUMMARY PT HAS TOLERATED NIGHT WITH NO SIGNIFICANT EVENTS. PT REQUIRES INCREASED NICARDIPINE OVERNIGHT DUE TO ELEVATED BLOOD PRESSURES. PT HAS BEEN SLEEPING AND HAS SIGNIFICANT SLEEP APNEA ISSUES. THIS NURSE ASKED PT IF SHE WOULD BE WILLING TO WEAR OXIMASK AT BEGINNING OF SHIFT TO WHICH PT REPLIES "NO THANK YOU." PT DESATS IN SLEEP INTO THE 70s. PT WAS ASKED AGAIN BY A DIFFERENT NURSE TO WHICH THE PT AGREES. PT HAS SINCE TAKEN MASK OFF IN SLEEP MULTIPLE TIMES AND HAS HAD TO BE RESTARTED ON OXYGEN. PT ALSO HAS SOME PERIODS OF BRADYCARDIA REACHING THE LOW 40s. PT HAS NO COMPLAINTS OF DIZZINESS, LIGHTHEADEDNESS, SHORTNESS OF BREATH, OR CHEST PAIN DURING THESE EPISODES. PT CURRENTLY SLEEPING COMFORTABLY IN ROOM. CALL LIGHT IN REACH. WILL CONTINUE TO MONITOR UNTIL REPORT PASSED TO DAY SHIFT TEAM.
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
[2024-10-17 09:19] LABS: ANTI-NUCLEAR AB ANA,IGG ELISA None Detected (None Detected)
[2024-10-17 10:34] LABS: HIV 1,2 COMBO ANTIGEN/ANTIBODY Negative (Negative)
[2024-10-17] MEDS ORDERED: ATOR80 PO (14:52)
[2024-10-17] MEDS ORDERED: FENO145 PO (14:53)
[2024-10-17] MEDS ORDERED: JARDIANCE10 MG PO (14:53)
[2024-10-17] MEDS ORDERED: LOSA50 PO (14:54)
--- NOTE | 2024-10-17 15:04 | NUR ---
UPDATE/ DC PROCESS PATIENT WAS SEEN BY DR LEWIS AND DR REARDON. DISCHARGE PLAN AND ORDERES RECIEVED AND IN PROCESS. PATIENT STATED SHE DROVE HERSELF HERE AND WILL DRIVE HERSELF HOME. FAXED NEW MED LIST TO [facility] IN [place]
--- NOTE | 2024-10-17 15:29 | NUR ---
DC PATIENT WAS WALKED OUT OF HOSPITAL AND SHE WALKED TO HER VEHICLE. ALL IV'S WERE DC'D AND VS TAKEN JUST BEFORE DC. SEE VS SHEET.
== END 2024-10-17 15:26 | disposition home or self-care (01) | DRG 282 ==
LOC: ER 03:18 → ICUE 06:09 → ERHOLD 06:09 → ICUE 13:08
PROVIDERS: Family Medicine; Internal Medicine; Student in an Organized Health Care Education/Training Program; ADMIT Student in an Organized Health Care Education/Training Program
PROC: 4A023N8 Measurement of Cardiac Sampling and Pressure, Bilateral, Percutaneous Approach (ICD-10-PCS; principal; 2024-10-15)
PROC: B2111ZZ Fluoroscopy of Multiple Coronary Arteries using Low Osmolar Contrast (ICD-10-PCS; 2024-10-15)
PROC: B34HZZZ Ultrasonography of Right Upper Extremity Arteries (ICD-10-PCS; 2024-10-15)
DX: I16.1 Hypertensive emergency (principal); I21.A1 Myocardial infarction type 2; I10 Essential (primary) hypertension; I27.20 Pulmonary hypertension, unspecified; G43.909 Migraine, unspecified, not intractable, without status migrainosus; K21.9 Gastro-esophageal reflux disease without esophagitis; J45.909 Unspecified asthma, uncomplicated; E66.9 Obesity, unspecified; D50.9 Iron deficiency anemia, unspecified; E87.6 Hypokalemia; E78.1 Pure hyperglyceridemia; E78.5 Hyperlipidemia, unspecified; I25.10 Atherosclerotic heart disease of native coronary artery without angina pectoris; I44.7 Left bundle-branch block, unspecified; Z88.1 Allergy status to other antibiotic agents; Z88.5 Allergy status to narcotic agent; Z79.82 Long term (current) use of aspirin; Z79.899 Other long term (current) drug therapy; Z87.891 Personal history of nicotine dependence; Z90.49 Acquired absence of other specified parts of digestive tract; Z90.89 Acquired absence of other organs; Z98.891 History of uterine scar from previous surgery; Z98.51 Tubal ligation status; Z82.49 Family history of ischemic heart disease and other diseases of the circulatory system; Z68.33 Body mass index [BMI] 33.0-33.9, adult
CPT/HCPCS: 36415; 71045; 71260; 76937; 80048; 80053; 80061; 82728; 82803; 83036; 83540; 83550; 83735; 83880; 84443; 84484; 85025; 85520; 85610; 85730; 86038; 87389; 93005; 93010; 93306; 93460; 96374-59; 99152; 99285-25; A9270; C1769; C1887; C1894; J1644; J2250; J3010; J3480; J7030; J7050; Q9967